=== PATIENT | female | born 1985 | race Two or more races ===

== ENCOUNTER → 2017-06-11 | Outpatient (CLI) | payer OTHER | END | disposition home or self-care (01) | LOC: MAMO-SONO 11:15 → SONOGRAMA 11:23 | DX: N92.5 Other specified irregular menstruation (principal); N89.0 Mild vaginal dysplasia ==

== ENCOUNTER 2017-08-20 06:46 | Day surgery (SDC) | payer OTHER ==
[2017-08-20] MEDS ORDERED: CODE1TAB37 PO (12:23)
[2017-08-20] MEDS ORDERED: DOXYCYCLINE HY100 MG PO (12:23)
== END 2017-08-20 18:30 | disposition home or self-care (01) ==
LOC: CIR.AMB 06:46
DX: N92.0 Excessive and frequent menstruation with regular cycle (principal); N84.0 Polyp of corpus uteri

== ENCOUNTER 2024-03-17 06:56 | Day surgery (SDC) | payer OTHER ==
[2024-03-08 09:22] LABS: HEMATOCRIT 35.4 % (36.0-45.00); HEMOGLOBIN 12.1 g/dL (12.0-15.00); MEAN CELL VOLUME 91.6 fL (80.00-100.00); MEAN CORPUSCULAR HEMOGLOBIN 31.3 pg (27.00-32.0); MEAN CORPUSCULAR HGB CONC 34.2 g/dl (32.0-36.0); PLATELET COUNT 257 K/uL (150-450); RED BLOOD COUNT 3.87 M/uL (4.00-6.00); RED CELL DISTRIBUTION WIDTH 13.3 % (11.5-14.5)
[2024-03-08 09:32] VITALS: BP 113/89
[2024-03-08 09:45] LABS: INR 0.95; PARTIAL THROMBOPLASTIN TIME 31.6 SECONDS (22.0-34.0); PROTHROMBIN TIME 10.4 SECONDS (9.0-11.5)
[2024-03-08 09:50] LABS: PH,URINE 5.5 (5.0-8.0); URINE APPEARANCE Clear; URINE BILIRRUBIN Negative (NEGATIVE); URINE BLOOD Negative; URINE COLOR Yellow; URINE GLUCOSE Negative (NEGATIVE); URINE KETONE Negative (NEGATIVE); URINE LEUKOCYTE Negative; URINE NITRATE Negative; URINE PROTEIN Negative (NEGATIVE); URINE UROBILINOGEN 0.2 E.U./dl
[2024-03-08 09:56] LABS: URINE BACTERIA 626.6 uL (0.0-1933); URINE RBC 3.5 uL (0.0-20.8); URINE WBC 3.7 uL (0.0-23.2)
[2024-03-08 10:01] LABS: URINE CAST 0.14 uL (0.0-1.40)
[2024-03-08 10:20] LABS: ALBUMIN 3.4 gm/dL (3.4-5.0); BILIRUBIN TOTAL 0.33 mg/dL (0.3-1.2); CALCIUM 8.9 mg/dL (8.5-10.1); CREATININE SERUM 0.62 mg/dL (0.55-1.02); GFR 106.08; GLOBULINA 3.4 G/DL (2.4-3.5); POTASSIUM 3.93 mEq/L (3.5-5.1); TOTAL PROTEIN 6.8 gm/dL (6.4-8.2); TSH 1.86 uIU/mL (0.358-3.74)
[~2024-03-17] VITALS: Ht 160 cm; Wt 83.5 kg
[~2024-03-17 06:56] MED LIST: CODE1TAB37 PO; DOXYCYCLINE HY100 MG PO
[2024-03-17] MEDS ORDERED: CLINDAMYCIN PHOSPHATE 150 MG/ML (900mg) IV ONE (11:45)
[2024-03-17] MEDS ORDERED: POVIDONE-IODINE 118 ML BOTT TOP ONE (11:45)
[2024-03-17] MEDS ORDERED: MONDOXYNE NL100 MG PO (12:26)
[2024-03-17] MEDS ORDERED: TRAMADOL HCL E100 M1 PO (12:26)
[2024-03-17] MEDS ORDERED: MORPHINE SULFATE 4 MG/ML VIAL IV PRN (12:30)
[2024-03-17] MEDS ORDERED: PROMETHAZINE HCL 50 MG/ML AMPUL IM ONE (12:30)
== END 2024-03-17 17:45 | disposition home or self-care (01) ==
LOC: CIR.AMB 06:56
PROVIDERS: ATTEND Obstetrics & Gynecology
DX: D25.0 Submucous leiomyoma of uterus (principal); N92.5 Other specified irregular menstruation; N84.0 Polyp of corpus uteri; Z88.0 Allergy status to penicillin; Z88.6 Allergy status to analgesic agent